=== PATIENT | male | born 1945 | race Caucasian/White ===

== ENCOUNTER 2016-08-27 08:30 | Day surgery (SDC) | payer MEDICARE ==
[2016-08-25 08:44] VITALS: BMI 32.1
[~2016-08-27 08:30] MED LIST: LACTATED RINGERS 1,000 ML IV SCH
[2016-08-27 08:46] VITALS: TEMP 97.9
[2016-08-27] MEDS ORDERED: LIDOCAINE 1% 20 ML VIAL (10MG/ML) FOR IV START INTRADERMA ONE (09:04)
[2016-08-27] MEDS ORDERED: LIDOCAINE 1% INJ 10MG/ML (20 ML MDV) ONE (09:12)
[2016-08-27] MEDS ORDERED: PROPOFOL 10 MG/ML 20 ML VIAL IV ONE (09:12)
--- NOTE | 2016-08-27 09:24 | P.PCN ---
Date of Procedure: 08/27/16 Procedure(s) Performed: BRIEF HISTORY: Patient is a 70-year-old pleasant white male, scheduled for an elective colonoscopy as a part of evaluation of prior history of colon polyps. His last endoscopy was in 2010. PROCEDURE PERFORMED: Colonoscopy. PREOPERATIVE DIAGNOSIS: History of colon polyps. IV sedation per Anesthesia. PROCEDURE: After informed consent was obtained, the patient, was brought into the endoscopy unit. IV conscious sedation was administered by Anesthesia under continuous monitoring. Initially the Olympus CF-160 flexible video colonoscope was then inserted in the rectum, gradually advanced into the cecum without any difficulty. Careful examination was performed as the scope was gradually being withdrawn. Ileocecal valve and the appendiceal orifice were visualized and appeared normal. Prep was excellent. Mucosa of the cecum, ascending colon, transverse colon, descending colon, sigmoid colon, and rectum appeared normal. Scattered sigmoid diverticulosis seen. Retroflexion was performed in the rectum and no lesions were seen. The patient tolerated the procedure well. IMPRESSION: Normal-appearing colon from rectum to cecum with no evidence of colorectal neoplasia . Scattered sigmoid diverticulosis. RECOMMENDATIONS: Findings of this examination were discussed with the patient as well as his family. He was advised to have a repeat surveillance colonoscopy in 5 years because of the prior history of colon polyps.
[2016-08-27 09:45] VITALS: RESP 16
[2016-08-27 10:03] VITALS: BP 145/81; PULSE 54
== END 2016-08-27 10:20 | disposition home or self-care (01) ==
LOC: ORWHC2ENDO 08:30
PROVIDERS: ATTEND Internal Medicine Gastroenterology
DX: Z12.11 Encounter for screening for malignant neoplasm of colon (principal); Z86.010 Personal history of colon polyps; K57.30 Diverticulosis of large intestine without perforation or abscess without bleeding; I25.10 Atherosclerotic heart disease of native coronary artery without angina pectoris; I10 Essential (primary) hypertension; E78.5 Hyperlipidemia, unspecified; Z79.82 Long term (current) use of aspirin; Z79.899 Other long term (current) drug therapy; Z95.1 Presence of aortocoronary bypass graft
CPT/HCPCS: J2001; J2704; G0105